=== PATIENT | female | born 1960 | race Two or more races ===

== ENCOUNTER 2024-07-02 09:24 | Emergency (ER) | payer MEDICARE, MEDICAID, SELFPAY ==
[2024-07-02 09:36] VITALS: BP 145/64; PULSE 80; RESP 16; TEMP 37.2; O2SAT 97; BMI 29.2
--- NOTE | 2024-07-02 10:18 | PD.EDRME ---
Rapid Medical Screening Exam RME Arrival date/time: 07/02/24 09:24 This is a 23-year-old female that comes in with complaints of weakness and diarrhea. Patient states symptoms started yesterday. Patient reports a history of anxiety, and rheumatoid arthritis. I have greeted and performed a focused initial assessment of this patient. Initial appropriate labs ordered at this time. A comprehensive ED assessment and evaluation of the patient and analysis of all test and completion of medical decision making process will be conducted by additional ED provider. Chief Complaint: Abdominal Pain Time Seen by Provider: 07/02/24 09:31 Vital signs: Vital Signs Temperature 98.9 F 07/02/24 09:36 Pulse Rate 80 07/02/24 09:36 Respiratory Rate 16 07/02/24 09:36 Blood Pressure 145/64 H 07/02/24 09:36 Pulse Oximetry (%) 97 07/02/24 09:36 Oxygen Delivery Method Room Air 07/02/24 09:36
[2024-07-02] MEDS: LOPERAMIDE 2 MG CAPSULE PO (10:43)
[2024-07-02 10:46] LABS: Basophils % (Auto) 0 % (0-2.5); Eosinophils % (Auto) 0 % (0-10); Hematocrit 37.5 % (36.0-46.0); Hemoglobin 12.5 g/dL (12.0-16.0); Immature Granulocytes % (Auto) 0 % (0-0); Immature Granulocytes Auto 0.02 Thou/mm3 (0.00-0.00); Lymphocytes # (Auto) 1.3 Thou/mm3 (1.0-4.8); Lymphocytes % (Auto) 16 % (10-50); Mean Corpuscular HGB Conc 33.3 g/dl (31.0-37.0); Mean Corpuscular Hemoglobin 32.1 pg (25.0-35.0); Mean Corpuscular Volume 96 fL (80-100); Monocytes # (Auto) 0.4 Thou/mm3 (0.0-0.8); Monocytes % (Auto) 5 % (0-12); Neutrophils # (Auto) 6.6 Thou/mm3 (1.8-7.7); Neutrophils % (Auto) 79 % (37-80); Nucleated Red Blood Cell % 0 /100 WBC (0); Platelet Count 452 Thou/mm3 (140-440); RDW Standard Deviation 49.7 fL (36.4-46.3); Red Blood Count 3.89 Miln/mm3 (4.00-5.20); White Blood Count 8.4 Thou/mm3 (3.6-11.0)
[2024-07-02 11:03] LABS: Collection Type, Urine Voided
[2024-07-02 11:08] LABS: Alanine Aminotransferase 22 U/L (10-49); Albumin, Serum 4.4 gm/dL (3.4-4.8); Albumin/Globulin Ratio 1.2 (1.2-2.2); Alkaline Phosphatase 152 U/L (46-116); Anion Gap 9 (7-16); Aspartate Amino Transferase 31 U/L (0-34); BUN/Creatinine Ratio 14 Ratio (12-20); Bilirubin,Total 0.5 mg/dL (0.3-1.2); Blood Urea Nitrogen 7 mg/dL (9-23); Carbon Dioxide 26.2 mMol/L (20.0-31.0); Chloride 104 mMol/L (98-107); Creatinine (Component) 0.5 mg/dL (0.6-1.3); Estimated Creatinine Clearance 99.1 mL/min (>60); Globulin 3.8 gm/dL (2.3-3.5); Glucose 99 mg/dL (74-106); Lipase 29 U/L (12-53); Osmolality,Calculated 275 (275-295); Potassium 3.7 mMol/L (3.4-5.1); Sodium 139 mMol/L (136-145); Total Protein 8.2 gm/dL (5.7-8.2); eGFR > 60 See Note
[2024-07-02 11:17] LABS: Bacteria,Urine Rare; Bilirubin,Urine Negative (Negative); Blood,Urine Negative (Negative); Clarity,Urine Clear (Clear/Hazy); Color,Urine Lt-Yellow (Lt Yel-Yel); Culture Indicated,Urine Not Indicated; Glucose, Urine Negative (Negative); Ketones,Urine 2+ (Negative); Leukocyte Esterase,Urine Positive (Negative); Nitrite,Urine Negative (Negative); PH,Urine 7.5 (5.0-7.0); Protein,Urine Negative (Neg - Trace); RBC,Urine 1 /hpf (0-3); Specific Gravity,Urine 1.014 (1.001-1.035); Squamous Epithelial Cell,Urine < 1 /hpf (0-5); Urobilinogen,Urine Negative mg/dL (0.0-1.0); WBC,Urine 9 /hpf (0-5)
--- NOTE | 2024-07-02 11:17 | EDNOTE_ITS ---
<Statement entered by Chelsey Armando MD - 07/03/24 15:16> As co-signing physician, I was present and available for consult prn. I concur with the plan and care as documented by the midlevel provider. ED General RME/HPI General Chief complaint: Abdominal Pain Stated complaint: DIARRHEA, WEAKNESS, STOMACH IS BOTHERING HER X 1D Time Seen by Provider: 07/02/24 09:31 Arrival date/time: 07/02/24 09:24 CC: Diarrhea HPI ongoing for the past 24 hours. Denies any abdominal pain painful urination nausea vomiting last diarrhea was approximately 45 minutes ago. No other family members are ill no OTC medicines taken. Patient is awake alert nontoxic-appearing not in any acute distress. RME / HPI RME / HPI narrative: 07/02/24 09:24 This is a 23-year-old female that comes in with complaints of weakness and diarrhea. Patient states symptoms started yesterday. Patient reports a history of anxiety, and rheumatoid arthritis. I have greeted and performed a focused initial assessment of this patient. Initial appropriate labs ordered at this time. A comprehensive ED assessment and evaluation of the patient and analysis of all test and completion of medical decision making process will be conducted by additional ED provider. Related Data Home Medications ?Medication ?Instructions ?Recorded ?Confirmed Fluoxetine HCl 40 mg PO ##0 08/22/14 Hydrocodone/Acetaminophen * (NORCO PO #0 tabs 08/22/14 10/325 *) abatacept 125 mg/mL subcutaneous 750 mg IV ##0 5 syringe (Orencia) alprazolam 0.5 mg tablet (Xanax) 0.5 mg PO #0 tabs 06/03 baclofen 10 mg tablet 10 mg PO ##0 08/22/14 escitalopram oxalate 20 mg tablet 20 mg PO QDAY #0 tab s 08/22/14 (Lexapro) ibuprofen 600 mg tablet 800 mg PO ##0 08/22/14 methotrexate sodium 25 mg/mL 2.5 mg ##0 08/22/14 injection solution (methotrexate) temazepam 15 mg capsule (Restoril) 15 mg PO HS PRN ANX IETY #0 caps 08/22/14 Previous Rx's ?Medication ?Instructions ?Recorded Hydrocodone/Acetaminophen * (NORCO 1 tab PO Q6H PRN PA IN #20 tabs 08/22/14 10/325 *) loperamide 2 mg capsule (Imodium 2 mg PO Q6H PRN loose stool #10 07/02/24 A-D) caps Allergies Allergy/AdvReac Type Severity Reaction Status Date / Time No Known Allergies Allergy Verified 07/02/24 09:30 Review of Systems Review of Systems Narrative Review of Systems: GEN: No fever, no chills, no weight loss EYES: No discharge, no visual changes, no pain HEENT: No ear pain, no congestion, no sore throat PULM: No shortness of breath, no cough, no congestion CV: No chest pain, no dyspnea on exertion, no palpitations GI: No nausea, no vomiting, no diarrhea, no pain, no constipation : No frequency, no urgency, no dysuria MUSC/SKEL: No joint pain, no back pain SKIN: No rash PSYCH: No hallucinations, no depression HEME/LYMPH: No easy bleeding or bruising tendencies NEURO: No weakness, no headache Past Medical History Past Medical History CARDIAC: Positive Cardiac Disorders (PT REPORTS THAT SHE HAS A HEART VALVE NOT WORKING, BUT NOT GETTIGN [place]) and Hypertension; Negative Congestive Heart Failure RESPIRATORY: Negative Chronic Obstructive Pulmonary Disease (COPD) GENITOURINARY: Negative Renal Disease MUSCULOSKELETAL: Positive Rheumatoid Arthritis ENDOCRINE: Negative Diabetes Mellitus Type 1 or Diabetes Mellitus Type 2 Surgical History SURGICAL: Positive Knee Sx Social History SMOKING STATUS: Never smoker ED Exam Narrative Physical exam: [General: Not in any acute distress Head normocephalic HEENT: Within acceptable limits Neck is supple nontender Chest equal chest rise nontender to palpation Respiratory: Clear to auscultation no wheezes crackles or rubs CV: Rate rhythm is regular no murmurs rubs or clicks Abdomen is distended secondary to body habitus soft nontender no masses positive bowel sounds all 4 quadrants Back: No CVA tenderness no spinous process tenderness from cervical spine thoracic and lumbar spine Skin: Intact no petechiae rash induration ulceration or crepitus Extremities: Moving all extremity against resistance cap refill less than 2 seconds neurosensory intact Neuro: Awake alert oriented x3 Glascow coma 15 no focal deficits] Course Quality Measures none Orders Category Date Time Status CBC Stat Lab 07/02/24 10:33 Completed Comprehensive Metabolic Panel Stat Lab 07/02/24 10:33 Completed Lipase Stat Lab 07/02/24 10:33 Completed Urinalysis, C/S if Indicated Stat Lab 07/02/24 10:42 Completed Loperamide [Imodium] Med 07/02/24 10:16 Discontinued 2 mg PO X1 ONE Loperamide [Imodium] Med 07/02/24 11:21 Discontinued 2 mg PO X1 ONE Vital Signs Vital signs: Vital Signs Temperature 98.9 F 07/02/24 09:36 Pulse Rate 80 07/02/24 09:36 Respiratory Rate 16 07/02/24 09:36 Blood Pressure 145/64 H 07/02/24 09:36 Pulse Oximetry (%) 97 07/02/24 09:36 Oxygen Delivery Method Room Air 07/02/24 09:36 [facility] Patient data External records reviewed:: [facility] previous records Clinical information provided by:: patient Social determinants that could affect healthcare access:: none Patient has the following chronic illnesses:: None How is presenting disease/condition affected by chronic disease/condition?: u neffected by Evaluation data The following diagnostics were reviewed and interpreted by me:: lab results Lab and/or radiology exams considered but not ordered:: CBC shows no acute leukocytosis anemia thrombocytopenia CMP shows no acute electrolyte imbalances renal impairment transaminitis or T. bili elevation Urine is negative for UTI. Interpretation Summary: Patient is not in any acute discomfort no tachycardia and stable vital signs. At this time comfortable discharging the patient home on Imodium. Medications Medications considered but not ordered:: None Medication administrations:: Medication Administration History Discontinued Medications Loperamide HCl (Loperamide 2 Mg Capsule) 2 mg PO X1 ONE Stop: 07/02/24 10:17 Last Admin: 07/02/24 10:43 Dose: 2 mg Documented By: CANDI Loperamide HCl (Loperamide 2 Mg Capsule) 2 mg PO X1 ONE Stop: 07/02/24 11:22 Last Admin: 07/02/24 11:50 Dose: Not Given Documented By: CANDI Non-Admin Reason: Duplicate Medication on eMAR 9 Consultations Consultation(s) initiated? (list below): No Diagnosis Differential Diagnosis ED Complaint MDM: Diarrhea nausea vomiting Most likely diagnosis given after review of the tests above:: Diarrhea Admission Indicated Admission indicated?: not indicated Explain why admission is indicated or not indicated:: Stable for discharge Admission Request Was there a request for admission?: No Disposition Plan Disposition Plan: Discharge Discharge Attestation Discharge Attestation: The patient and all family members were given an opportunity to ask questions and understood the discharge instructions. Discharge instructions specifically effects, indications for sooner follow up or return to the emergency department, and the expected course of current diagnosis. Patient condition: Stable Medical Decision Making Differential Diagnosis Differential Diagnosis: Diarrhea nausea vomiting Lab Data 07/02/24 10:33 07/02/24 10:33 Labs: Lab Results 07/02/24 07/02/24 Range/Units 10:33 10:42 WBC 8.4 (3.6-11.0) Thou/mm3 RBC 3.89 L (4.00-5.20) Miln/mm3 Hgb 12.5 (12.0-16.0) g/dL Hct 37.5 (36.0-46.0) % MCV 96 (80-100) fL MCH 32.1 (25.0-35.0) pg MCHC 33.3 (31.0-37.0) g/dl RDW Std Deviation 49.7 H (36.4-46.3) fL Plt Count 452 H (140-440) Thou/mm3 Neut % (Auto) 79 (37-80) % Lymph % (Auto) 16 (10-50) % Haakon % (Auto) 5 (0-12) % Eos % (Auto) 0 (0-10) % Baso % (Auto) 0 (0-2.5) % Neut # (Auto) 6.6 (1.8-7.7) Thou/mm3 Lymph # (Auto) 1.3 (1.0-4.8) Thou/mm3 Haakon # (Auto) 0.4 (0.0-0.8) Thou/mm3 Eos # (Auto) 0.0 (0.0-0.5) Thou/mm3 Baso # (Auto) 0.0 (0.0-0.2) Thou/mm3 Immature Gran # (Auto) 0.02 H (0.00-0.00) Thou/mm3 Absolute Nucleated RBC 0.00 (0.00-0.00) Thou/mm3 Immature Gran % 0 (0-0) % Nucleated RBC % 0 (0) /100 WBC Sodium 139 (136-145) mMol/L Potassium 3.7 (3.4-5.1) mMol/L Chloride 104 (98-107) mMol/L Carbon Dioxide 26.2 (20.0-31.0) mMol/L Anion Gap 9 (7-16) BUN 7 L (9-23) mg/dL Creatinine 0.5 L (0.6-1.3) mg/dL Estim Creat Clear Calc 99.1 (>60) mL/min eGFR > 60 (60 - ) See Note BUN/Creatinine Ratio 14 (12-20) Ratio Glucose 99 (74-106) mg/dL Calculated Osmolality 275 (275-295) Calcium 9.0 (8.3-10.6) mg/dL Corrected Calcium 9.0 (8.5-10.1) mg/dL Total Bilirubin 0.5 (0.3-1.2) mg/dL AST 31 (0-34) U/L ALT 22 (10-49) U/L Alkaline Phosphatase 152 H (46-116) U/L Total Protein 8.2 (5.7-8.2) gm/dL Albumin 4.4 (3.4-4.8) gm/dL Globulin 3.8 H (2.3-3.5) gm/dL Albumin/Globulin Ratio 1.2 (1.2-2.2) Lipase 29 (12-53) U/L Ur Collection Type Voided Urine Color Lt-Yellow (Lt Yel-Yel) Urine Clarity Clear (Clear/Hazy) Urine pH 7.5 H (5.0-7.0) Ur Specific [place] 1.014 (1.001-1.035) Urine Protein Negative (Neg - Trace) Urine Glucose (UA) Negative (Negative) Urine Ketones 2+ A (Negative) Urine Blood Negative (Negative) Urine Nitrite Negative (Negative) Urine Bilirubin Negative (Negative) Urine Urobilinogen (Auto) Negative (0.0-1.0) mg/dL Ur Leukocyte Esterase Positive (Negative) Urine RBC 1 (0-3) /hpf Urine WBC 9 H (0-5) /hpf Ur Squamous Epith Cells < 1 (0-5) /hpf Urine Bacteria Rare (None) Ur Culture Indicated? Not Indicated Discharge Plan Plan Patient Disposition: HOME (Self Care) Patient condition on transfer: Stable Prescriptions/Referrals Prescriptions/Med Rec: New loperamide [Imodium A-D] 2 mg capsule 2 mg PO Q6H PRN (Reason: loose stool) Qty: 10 0RF No Action methotrexate sodium [methotrexate] 25 MG/ML solution 2.5 mg Qty: 0 alprazolam [Xanax] 0.5 MG tablet 0.5 mg PO Qty: 0 temazepam [Restoril] 15 MG capsule 15 mg PO HS PRN (Reason: ANXIETY) Qty: 0 baclofen 10 MG tablet 10 mg PO Qty: 0 ibuprofen 600 MG tablet 800 mg PO Qty: 0 escitalopram oxalate [Lexapro] 20 MG tablet 20 mg PO QDAY Qty: 0 abatacept [Orencia] 125 MG/1 ML syringe 750 mg IV Qty: 0 Fluoxetine HCl 60 MG tablet 40 mg PO Qty: 0 Hydrocodone/Acetaminophen * (NORCO 10/325 *) 1 TAB tablet PO Qty: 0 Hydrocodone/Acetaminophen * (NORCO 10/325 *) 1 TAB tablet 1 tab PO Q6H PRN (Reason: PAIN) Qty: 20 0RF Referrals: Jaylon García [Primary Care Provider] - In 1 week Problem List Clinical Impression: Diarrhea Patient/Caregiver Discharge Instructions Education Materials: ED Diarrhea, Unknown Cause Print Language: Portuguese Stand Alone Forms: Luda Award Info., Work/School Release, Patient Portal Info Letter PA/SUPERVISOR SAWMILL Supervising Physician PA/SUPERVISOR SAWMILL Supervising Physician: Alan Peralta ENP
[2024-07-02 11:28] VITALS: BP 106/75; PULSE 91; RESP 18; TEMP 37.1; O2SAT 97
== END 2024-07-02 11:32 | disposition home or self-care (01) ==
PROVIDERS: Nurse Practitioner Family; Emergency Provider Emergency Medicine; PCP Internal Medicine
DX: R19.7 Diarrhea, unspecified (principal)
CPT/HCPCS: 36415; 80053; 81001; 83690; 85025; 99283; A9270